=== PATIENT | female | born 1980 | race Caucasian/White ===

== ENCOUNTER 2020-09-26 15:58 | Emergency (ER) | payer OTHER ==
[~2020-09-26 15:58] MED LIST: BUPRENORPHIN-N1 EACH SL; CYMBALTA60 MG PO; EXCEDRIN EXTRA1 EACH PO; GABAPENTIN300 MG PO; LAMOTRIGINE150 MG PO; OMEPRAZOLE20 M1 PO; VITAMIN B-121000 MCG PO; VITAMIN D250000 UNIT PO
[2020-09-26 19:50] LABS: HEMOGLOBIN 14.7 gm/dl (12.3-15.3); RED BLOOD COUNT 4.74 M/UL (4.00-5.10); WHITE BLOOD COUNT 8.9 K/UL (4.5-11.0)
[2020-09-26 20:14] LABS: BUN/CREATININE RATIO 7 (0-10)
== END 2020-09-26 21:41 | disposition home or self-care (01) ==
LOC: ER1 15:58
PROVIDERS: Family Medicine
DX: Z00.00 Encounter for general adult medical examination without abnormal findings (principal); Z79.899 Other long term (current) drug therapy
CPT/HCPCS: 80053; 82550; 82553; 83874; 84484; 85025; 93005; 99283

== ENCOUNTER → 2020-11-11 | Outpatient (CLI) | payer OTHER | LOC: ECHO 10-27 10:00 → CT 10-27 11:00 → ECHO 09:00 | DX: I10 Essential (primary) hypertension (principal); I71.4 Abdominal aortic aneurysm, without rupture | CPT/HCPCS: ECHO; 71275; 93306; Q9967 ==

== ENCOUNTER → 2021-03-14 | Outpatient (CLI) | payer OTHER | LOC: CT 03-13 08:30 | DX: R93.89 Abnormal findings on diagnostic imaging of other specified body structures (principal); I71.2 Thoracic aortic aneurysm, without rupture; J98.11 Atelectasis | CPT/HCPCS: 36415; 71260; 82565; 84520; Q9967 ==

== ENCOUNTER → 2021-04-29 | Outpatient (CLI) | payer OTHER | LOC: RT 14:20 | DX: R09.02 Hypoxemia (principal) | CPT/HCPCS: 36600; 82803 ==